=== PATIENT | male | born 1955 | race Caucasian/White ===

== ENCOUNTER 2017-08-25 15:24 | Emergency (ER) | payer SELFPAY ==
[2017-08-25 15:59] VITALS: BP 131/78; PULSE 46; RESP 16; TEMP 98.1; O2SAT 99
--- NOTE | 2017-08-25 17:03 | ED PDOC ---
HPI: Skin/Bite Injury Time Seen by Provider: 08/25/17 16:01 Chief Complaint (Nursing): Abnormal Skin Integrity Chief Complaint (Provider): Abnormal Skin Integrity History Per: Patient History/Exam Limitations: no limitations Onset/Duration Of Symptoms: Days (10-12) Additional Complaint(s): 62 years old male presents to the ED for evaluation of a blister on his right cheek onset 10 to 12 days. Patient denies any pain, itchiness, URI, headache, rash or experiencing similar lesions before. Otherwise: (-) foreign body, (-) fever, (-) chills. (-) recent antibiotic use. PMD: non provided Past Medical History Reviewed: Historical Data, Nursing Documentation, Vital Signs Vital Signs: Last Vital Signs Temp 98.1 F 08/25/17 15:55 Pulse 46 L 08/25/17 15:55 Resp 16 08/25/17 15:55 BP 131/78 08/25/17 15:55 Pulse Ox 99 08/25/17 17:41 - Medical History PMH: No Chronic Diseases - Surgical History Surgical History: No Surg Hx - Family History Family History: States: Unknown Family Hx - Immunization History Hx Tetanus Toxoid Vaccination: No - Home Medications Home Medications: Ambulatory Orders Medication Instructions Recorded Cephalexin [Keflex] 500 mg PO Q6 #28 capsule 08/25/17 - Allergies Allergies/Adverse Reactions: Allergies Allergy/AdvReac Type Severity Reaction Status Date / Time No Known Allergies Allergy Verified 08/25/17 15:55 Review of Systems ROS Statement: Except As Marked, All Systems Reviewed And Found Negative Constitutional: Negative for: Fever Skin: Negative for: Rash, Other (Itchiness) Neurological: Negative for: Headache Physical Exam - Reviewed Nursing Documentation Reviewed: Yes - Physical Exam Appears: Positive for: Well, Non-toxic, No Acute Distress Head Exam: Positive for: ATRAUMATIC, NORMAL INSPECTION Skin: Positive for: Normal Color, Warm, Dry, Rash (+less than 1 cm shallow erythematous circular ulcer, not TTP, no surrounding erythema, to the right cheek) Eye Exam: Positive for: Normal appearance, EOMI, PERRL ENT: Positive for: Normal ENT Inspection, Pharynx Is (normal), TM Is/Are ( normal without erythema). 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 Negative for : Motor/Sensory Deficits - ECG O2 Sat by Pulse Oximetry: 99 (RA) Medical Decision Making Medical Decision Making: Patient presents for wound check. Based on patient's history and exam, patient does not have shingles but possible insect bite. Patient is given Keflex and advised to take it when redness, swelling or pain increases and instructed to follow up with PMD or clinic. Scribe Attestation: Documented by Fiona Farnsworth, acting as a scribe for Scarlet Quick PA-C. Provider Scribe Attestation: All medical record entries made by the Scribe were at my direction and personally dictated by me. I have reviewed the chart and agree that the record accurately reflects my personal performance of the history, physical exam, medical decision making, and the department course for this patient. I have also personally directed, reviewed, and agree with the discharge instructions and disposition. Disposition - Clinical Impression Clinical Impression: Visit for wound check - Patient ED Disposition Is Patient to be Admitted: No Counseled Patient/Family Regarding: Diagnosis, Need For Followup, Rx Given - Disposition Referrals: [facility] [Outside] Gregg Hernandez MD [Staff Provider] - Disposition: Routine/Home Disposition Time: 17:00 Condition: STABLE Additional Instructions: Clean every day with soap and water. Follow up with a doctor/clinic in 2-3 days for re-evaluation. Return to the ER at any time for any new or worsening symptoms. Prescriptions: Cephalexin [Keflex] 500 mg PO Q6 #28 capsule Instructions: Wound Care Forms: Elivar (Algerian) - PA / MEDIEVAL ENGLISH LITERATURE PROFESSOR / Resident Statement / has reviewed & agrees with the documentation as recorded.
== END 2017-08-25 17:00 | disposition home or self-care (01) ==
LOC: H.ER 15:24
DX: Z48.00 Encounter for change or removal of nonsurgical wound dressing (principal)